=== PATIENT | male | born 1970 | race Two or more races ===

== ENCOUNTER 2018-11-23 00:08 | Emergency (ER) | payer BC ==
[~2018-11-23] VITALS: Ht 154.9 cm; Wt 57.0 kg
[2018-11-23 10:08] LABS: BASOPHILS % 0.8 % (0.0-2.0); EOSINOPHILS % 4.7 % (0.0-5.0); HEMOGLOBIN. 14.3 g/dL (14.0-18.0); LYMPHOCYTES % 21.1 % (20.0-50.0); MEAN CORPUSCULAR HEMOGLOBIN 32.3 pg (28.0-32.0); MEAN PLATELET VOLUME 10.5 fl (7.4-10.4); MONOCYTES % 5.8 % (2.0-8.0); NEUTROPHILS % 67.6 % (40.0-76.0); PLATELET 163 x1000/uL (130-400); RED BLOOD CELL COUNT 4.42 mill/uL (4.7-6.1)
[2018-11-23 10:12] LABS: CHLORIDE 106 mEq/L (98-107)
[2018-11-23 11:06] VITALS: BP 128/78
== END 2018-11-23 11:08 | disposition home or self-care (01) ==
LOC: ER 00:08
DX: M54.89 Other dorsalgia (principal); M54.2 Cervicalgia; R07.81 Pleurodynia; R51 Headache
CPT/HCPCS: 36415; 71045; 93005; 99284